=== PATIENT | female | born 1980 | race Caucasian/White ===

== ENCOUNTER → 2023-11-07 15:44 | Outpatient (REF) | payer OTHER, SELFPAY | LOC: RAD 15:44 | PROVIDERS: ATTENDING PHYSICIAN Nurse Practitioner Family | DX: R10.31 Right lower quadrant pain (principal) | CPT/HCPCS: 74177; Q9967 ==

== ENCOUNTER 2023-11-07 22:34 | Observation (INO) | payer OTHER, SELFPAY ==
[2023-11-07 19:58] VITALS: BP 106/67
--- NOTE | 2023-11-07 20:52 | ED.GENMED ---
History of Present Illness
General
Chief Complaint: Abdominal Pain
Source: patient
Exam Limitations: none
Time Seen by Provider: 11/07/23 20:40
Travel History
Have you had any contact with someone who has COVID-19?: No
Do you have any symptoms of coronavirus? Fever > 100 degrees, chills, cough, shortness of breath, sore throat, loss of taste or smell, muscle aches, or headache?: No
History of Present Illness
History of Present Illness:
See MDM
Past History
Past History
ED Past Medical History: Other (PVCs)
Social History
Tobacco: Non-smoker
Alcohol: None
Phy Exam
Physical Exam
Physical Exam:
See MDM
Course
Orders/Labs/Results
Orders:
Orders
11/07/23 20:51
Complete Blood Count/With Diff Urgent
Comprehensive Metabolic Panel Urgent
Piperacillin/Tazo 3.375 Gram [Zosyn] 3.375 gram in 50 ml IV NOW
Vital Signs
Initial and Last Documented VS:
Initial Vital Signs
Temp Pulse Resp BP Pulse Ox
98.5 F 84 17 106/67 99
11/07/23 19:58 11/07/23 19:58 11/07/23 19:58 11/07/23 19:58 11/07/23 19:58
Last Documented Vital Signs
Temp Pulse Resp BP Pulse Ox
98.5 F 84 17 106/67 99
11/07/23 19:58 11/07/23 19:58 11/07/23 19:58 11/07/23 19:58 11/07/23 19:58
MDM/Problems Addressed
Differential Diagnosis Includes:
HPI and MDM Narrative:
43-year-old female presenting with acute appendicitis. Patient developed pain in the right lower quadrant since 11 PM last night. Outpatient CT showed acute appendicitis. Her PCP called her to go to the emergency department. She denies fevers.
On exam, she is well-appearing nontoxic. She does have point tenderness to right lower quadrant. Surgery made aware. Will start antibiotics and admit for evaluation in the morning
Physical exam
General: Well appearing and non-toxic
HEENT: protecting airway
Neck: appears supple
CV: No evidence of cyanosis
Resp: No accessory muscle use
Abd: Non-distended. Point tenderness to right lower quadrant
Extremities: No deformities
Neuro: alert
Psych: Normal affect
Skin: Intact
Problems Addressed including Acute and Chronic Conditions affecting care:
1. Acute appendicitis
Acuity: acute
Prognosis: stable
Details: Will start antibiotics and admit
Updates
Differential Diagnosis (but not limited to): Acute appendicitis, mesenteric enteritis, diverticulitis
Testing considered: Urinalysis but she denies symptoms
Drug therapy (if applicable): OTC meds, please see d/c instruction regarding Rx drugs
Amount and/or Complexity of Data Reviewed
Clinical info obtained from: Patient
External data reviewed: Outpatient CT evaluated showing uncomplicated appendicitis
Labs I independently reviewed (but not limited to): [ ]
Radiology: N/A
Pulse Ox: not hypoxic
EKG independently reviewed: N/A
Senior Windows Engineer: N/A
Critical Care: N/A
Risk of Complication:
Social Determinants of health: Good social support
Discussed with other providers: Surgery
Escalation of Care includes Admit/Obs: Given appendicitis, will admit
Occasional wrong word or 'sound a like' substitutions may have occurred due to the inherent limitations of voice recognition software. Read the chart carefully and recognize, using context, where substitutions have occurred.
*Critical Care Note
Total Time (30-74mins, 75-104mins- exclusive of procedures): Not Applicable
ED Attending Note
-
Portions of this chart may have been created with voice recognition software.� Occasional wrong word or��sound alike� substitutions may have occurred due to the inherent limitations of voice recognition software.
Discharge Plan
Departure
Patient Disposition: Admit
Date of Disposition: 11/07/23
Time of Disposition: 21:00
Presentation/result/management discussed w/ accepting MD/DO: Hospitalist
Discharge Problem:
Acute appendicitis
Prescriptions:
No Action
Vitamins
1 tab PO DAILY
ibuprofen 600 MG tablet
600 mg PO Q4HPRN PRN (Reason: moderate pain/cramps) Qty: 0 0RF
Interventions
Interventions:
*Risk Screen - Suicide Last Done: 11/07/23 19:59
*General Assessment Last Done: 11/07/23 19:59
*Neglect/Abuse Screening Last Done: 11/07/23 19:59
*ED COVID-19 Vaccine History Last Done: 11/07/23 19:59
Discharge Date and Time
Print Language: JAMAICAN
[2023-11-07] MEDS: ZOSYN 50 IV (21:06)
[2023-11-07 21:09] LABS: % Basophils 0.2 % (0-2); % Immature Granulocytes 0.2 % (0-0.5); % Lymphocytes 20.1 % (20.5-51.1); % Monocytes 4.4 % (1.7-9.3); % Neutrophils 74.1 % (42.2-75.2); Absolute Eosinophils 0.1 10^3/uL (0-0.7); Absolute Lymphocytes 1.7 10^3/uL (1.2-3.4); Absolute Monocytes 0.4 10^3/uL (0.1-0.6); Absolute Neutrophils 6.2 10^3/uL (1.4-6.5); Hematocrit 32.6 % (37.0-47.0); Hemoglobin 11.7 g/dL (12.0-16.0); Mean Corp Hgb Conc. 35.9 g/dL (33.0-37.0); Mean Corpuscular Hgb 30.1 pg (27.0-31.0); Mean Corpuscular Volume 83.8 fL (81.0-99.0); Mean Platelet Volume 9.8 fL (7.4-10.4); Nucleated Red Blood Cells % 0 %; Platelet Count 201 10^3/uL (130-400); Red Blood Cell Count 3.89 10^6/uL (4.20-5.40); White Blood Cell Count 8.3 10^3/uL (4.8-10.8)
[2023-11-07 21:24] LABS: HCG, Serum Qualitative Screen Negative
[2023-11-07 21:27] LABS: ALT (SGPT) 22 U/L (0-35); AST (SGOT) 28 U/L (14-36); Alkaline Phosphatase 45 U/L (38-126); Blood Urea Nitrogen 19 mg/dl (7-17); Calcium 8.9 mg/dl (8.4-10.2); Carbon Dioxide 26 mmol/L (22-30); Chloride 104 mmol/L (98-107); Glucose 94 mg/dl (70-99); Potassium 3.7 mmol/L (3.5-5.1); Sodium 136 mmol/L (135-145); Total Bilirubin 0.8 mg/dl (0.2-1.3); Total Protein 6.4 g/dl (6.3-8.2); eGFR > 60.00
--- NOTE | 2023-11-07 22:27 | HPS.HSE ---
Addendum entered and electronically signed by Kris Mckeon MD 11/08/23 08:19:
Patient seen and examined independently of admitting nurse practitioner. Agree with documented history and physical consistent with my current examination and evaluation.
HPI: 43-year-old female acute onset of abdominal pain starting evening at 11 PM after going to the [employer]. She thought she was experiencing possible gastroenteritis or GI bug. Pain increased in severity and began localizing to the
right side of the abdomen yesterday. Saw her primary care physician and she was referred for CT scan which demonstrated appendicitis prompting referral to the emergency department and subsequent admission.
She continues with discomfort in the right lower quadrant. Is about the same as yesterday. Some mild anorexia but no nausea, no vomiting, her bowels have moved regularly a couple times since the onset of her symptoms without diarrhea or
constipation. She had a similar episode like this back in the fall which lasted for 5 to 7 days and then resolved without seeking medical attention. Otherwise no similar priors.
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
AFVSS
NAD, AAOx3
ABD: Soft nondistended mild tenderness palpation localized in the right lower quadrant. No rebound rigidity no guarding.
CT imaging personally reviewed. Mildly distended appendix which appears to have some increased enhancement and surrounding localized inflammatory changes. Moderate stool burden. TI unremarkable. No additional notable findings.
Assessment: 43-year-old female presenting with acute appendicitis.
Reviewed with patient history, examination and CT imaging consistent with acute appendicitis. Discussed both operative and nonoperative management options and associated risks/benefits of approaches. Patient is in agreement to proceed with
appendectomy.
Laparoscopic appendectomy reviewed in detail with the patient. Discussed operative technique utilizing diagrams or drawings, alternative management options, benefits and potential risks such as but not limited to bleeding, infectious or wound
healing complications, iatrogenic injury to surrounding viscera and staple line leakage. Discussed the typical postoperative recovery pending operative findings.
Any of the patient's concerns or questions were fully addressed and informed consent was obtained.
Plan: OR for laparoscopic appendectomy.
Empiric antibiotic coverage with Zosyn has already been initiated.
Nothing by mouth, IV fluid hydration and supportive care awaiting operative room availability.
SCDs for DVT prophylaxis
Original Note:
Family Physician
-
Family Physician: Irene White
Chief Complaint
-
Abdominal pain
History of Present Illness
a 43 years old female present in ER with a complain of abdominal pain. Symptoms started last night around 11 pm with generalized abdominal pain, did not take any meds for the pain. Patient was able to sleep for couple hours then she waked up from
severe pain and could not get herself in a comfortable position. Pain increased with movement and walking. Patient was not able to eat all day. Denied nausea, vomiting, fever, diarrhea, constipation or any urinary symptoms. Denied SOB or chest pain.
Patient has history of PVCS and currently on metoprolol 12.5 mg at hs.
Medical History
Past Medical History
Past Medical History: Reports Other (PVCs)
Past Surgical History: Reports Other (umbilical hernia/repair )
Social History
Tobacco: Non-smoker
Alcohol: None
Personal:
Living: With Family
Employment: Other
Family History
Family History: Not pertinent
Allergies / Home Medications
Allergies reflects when Allergies were last updated in [facility].
Home Medications with original date entered in [facility]
Allergy/Medication List:
Patient Allergies
Allergy/AdvReac Type Severity Reaction Status Date / Time
latex Allergy UTI - Verified 11/07/23 19:56
BLADDER
INFECTION
FROM LATEX
CONDOMS
Home Medications Table - record
�Medication �Instructions �Recorded �Confirmed
metoprolol succinate 25 mg 12.5 mg PO HS 11/07/23 11/07/23
tablet,extended release 24 hr
Review of Systems
-
A 12 point ROS was completed and negative except as noted: Yes
Constitutional: Reports No Symptoms
EENT: Reports No Symptoms
Respiratory: Reports No Symptoms
Cardiac: Reports No Symptoms
Abdomen/GI: Reports Abdominal Pain
: Reports No Symptoms
Musculoskeletal: Reports No Symptoms
Physical Exam
Vital Signs
Vital Signs
Temp Pulse Resp BP Pulse Ox
98.5 F 84 17 106/67 99
11/07/23 19:58 11/07/23 19:58 11/07/23 19:58 11/07/23 19:58 11/07/23 19:58
Physical Exam
General: No Apparent Distress
Respiratory: Clear
Cardiac: Regular Rhythm
GI: Soft, Non Distended, Normal Bowel Sounds and Tender (RLQ (+ McBurney`s point) )
Musculoskeletal: No Edema
Skin: Warm
Neuro: Awake and AO x 3
Psych: Calm
Laboratory Results
-
11/07/23 21:04
11/07/23 21:04
Laboratory Results
Total Bilirubin 0.8 mg/dl (0.2-1.3) 11/07/23 21:04
AST 28 U/L (14-36) 11/07/23 21:04
ALT 22 U/L (0-35) 11/07/23 21:04
Alkaline Phosphatase 45 U/L (38-126) 11/07/23 21:04
Data Reviewed
-
CT Scan: Discussed with Patient
Impression/Plan
-
Abdomen/Plvs CT shows
ACUTE APPENDICITIS without evidence for appendiceal perforation or periappendiceal abscess
IMPRESSION:
ACUTE APPENDICITIS
PLAN:
Admit/observation/ med- surg level/ Dr. Mckeon (Surgical services)
NPO
IVF
analgesics as needed.
Abx Zosyn.
History of PVCs
Continue with home meds metoprolol 12.5mg
DVT prophylaxis: Lovenox sq
Code status: Full Code
[2023-11-07 23:25] VITALS: BP 103/53; BMI 26.0
[2023-11-08] VITALS (11 sets, daily range): BP systolic 87–109; BP diastolic 42–66
[2023-11-08] MEDS: NSS 1000 IV (00:20)
[2023-11-08] MEDS: TORADOL 15 MG IV (00:28)
[2023-11-08] MEDS: LOPRESSOR 12.5 MG PO (00:28)
[2023-11-08] MEDS: ZOSYN 50 IV ×3 (02:18→13:46)
--- NOTE | 2023-11-08 08:21 | W.SUR.PREOP ---
Pre-Operative Surgical Note
-
I have examined this patient prior to the performance of the scheduled procedure.
The patient's condition is unchanged from the time of the current History and
Physical and the patient is able to undergo the scheduled procedure.
--- NOTE | 2023-11-08 12:24 | W.IMMPOSTOP ---
Addendum entered and electronically signed by Kris Mckeon MD 11/08/23 12:38:
#[id number]
Original Note:
Surgical Immed Post Op Note
-
Primary Surgeon: Linda
Assisting Surgeon: None
Pre-op Diagnosis: Acute Appendicitis
Post-op Diagnosis: Acute Appendicitis
Procedure Performed: Laparoscopic Appendectomy
Anesthesia Type: GETA + 0.25% Marcaine
Specimen / Cultures: Appendix
Estimated Blood Loss: 2mL
Complications: none immediate
Operative Findings: Acute uncomplicated appendicitis. no perforation, no abscess, no purulence.
Plan: routine post op care, okay for d/c when gene PO, ambulating and pain controlled,
--- NOTE | 2023-11-08 13:49 | PTCARENOTE ---
received patient from PACU in bed, alert and oriented x3, reporting minimal abdomen discomfort, declined medication, ice pack in place to abdomen. also reporting headache, requesting oral fluids, she feels this will help. Abdomen with 4 puncture
sites with surgical glue intact. vitals noted. call engle inreach. plan of care on going.
== END 2023-11-08 20:04 | disposition home or self-care (01) ==
LOC: 4 EAST ACU 22:34
PROVIDERS: ADMITTING PHYSICIAN Surgery; EMERGENCY PHYSICIAN Student in an Organized Health Care Education/Training Program; FAMILY PHYSICIAN Family Medicine
DX: K35.80 Unspecified acute appendicitis (principal); Z86.79 Personal history of other diseases of the circulatory system; Z91.040 Latex allergy status
CPT/HCPCS: 44970; 88304; 80053; 84703; 85025; 96365; 99285; G0378

== ENCOUNTER → 2024-02-17 12:59 | Outpatient (REF) | payer OTHER, SELFPAY | LOC: HWEVLT 12:59 | PROVIDERS: ATTENDING PHYSICIAN Radiology Diagnostic Radiology | DX: I83.893 Varicose veins of bilateral lower extremities with other complications (principal) | CPT/HCPCS: 93970 ==

== ENCOUNTER → 2024-03-22 09:20 | Outpatient (REF) | payer OTHER, SELFPAY | LOC: WDC 09:20 | PROVIDERS: ATTENDING PHYSICIAN Physician Assistant Medical | DX: N63.20 Unspecified lump in the left breast, unspecified quadrant (principal); N63.23 Unspecified lump in the left breast, lower outer quadrant | CPT/HCPCS: 76642; 77062; 77066 ==

== ENCOUNTER → 2024-03-25 08:00 | Outpatient (REF) | payer OTHER, SELFPAY | LOC: HWEVLT 08:00 | PROVIDERS: ATTENDING PHYSICIAN Radiology Vascular & Interventional Radiology | DX: I83.891 Varicose veins of right lower extremity with other complications (principal) | CPT/HCPCS: 36471; 36478; C1769 ==

== ENCOUNTER → 2024-04-08 15:01 | Outpatient (REF) | payer OTHER, SELFPAY | LOC: HWEVLT 15:01 | PROVIDERS: ATTENDING PHYSICIAN Radiology Diagnostic Radiology | DX: I83.891 Varicose veins of right lower extremity with other complications (principal) | CPT/HCPCS: 93971 ==

== ENCOUNTER 2024-05-04 06:10 | Day surgery (SDC) | payer OTHER, SELFPAY ==
[2024-04-28 08:49] VITALS: BMI 23.6
[2024-04-28 08:50] LABS: Hematocrit 37.2 % (37.0-47.0); Hemoglobin 13.1 g/dL (12.0-16.0); Mean Corp Hgb Conc. 35.2 g/dL (33.0-37.0); Mean Corpuscular Hgb 30.5 pg (27.0-31.0); Mean Corpuscular Volume 86.7 fL (81.0-99.0); Mean Platelet Volume 11.5 fL (7.4-10.4); Platelet Count 212 10^3/uL (130-400); Red Blood Cell Count 4.29 10^6/uL (4.20-5.40); Red Cell Dist. Width 11.9 % (11.5-14.5); White Blood Cell Count 3.8 10^3/uL (4.8-10.8)
[2024-04-28 10:33] LABS: ALT (SGPT) 21 U/L (0-35); AST (SGOT) 27 U/L (14-36); Albumin 4.2 g/dl (3.5-5.0); Alkaline Phosphatase 31 U/L (38-126); Blood Urea Nitrogen 19 mg/dl (7-17); Calcium 9.2 mg/dl (8.4-10.2); Carbon Dioxide 24 mmol/L (22-30); Chloride 104 mmol/L (98-107); Estimated Creatinine Clearance 70 ml/min; Glucose 77 mg/dl (70-99); Potassium 4.3 mmol/L (3.5-5.1); Sodium 141 mmol/L (135-145); Total Bilirubin 0.6 mg/dl (0.2-1.3); Total Protein 6.6 g/dl (6.3-8.2); eGFR > 60.00
[2024-05-04 06:51] VITALS: BP 107/55; BMI 23.6
[2024-05-04] MEDS: TYLENOL 1000 MG PO (06:58)
[2024-05-04 08:37] VITALS: BP 97/54
[2024-05-04 08:45] VITALS: BP 98/59
[2024-05-04 09:00] VITALS: BP 99/65
[2024-05-04 09:15] VITALS: BP 98/62
[2024-05-04 09:30] VITALS: BP 98/61
== END 2024-05-04 09:58 | disposition home or self-care (01) ==
LOC: SDS 06:10
PROVIDERS: ATTENDING PHYSICIAN Surgery; FAMILY PHYSICIAN Family Medicine
DX: N60.02 Solitary cyst of left breast (principal)
CPT/HCPCS: 19120; 88304; 36415; 80053; 82306; 84134; 85027; L8000

== ENCOUNTER → 2024-05-06 08:05 | Outpatient (REF) | payer OTHER, SELFPAY | LOC: HWEVLT 08:05 | PROVIDERS: ATTENDING PHYSICIAN Radiology Vascular & Interventional Radiology | DX: I83.892 Varicose veins of left lower extremity with other complications (principal) | CPT/HCPCS: 36478; C1769 ==

== ENCOUNTER → 2024-05-25 14:55 | Outpatient (REF) | payer OTHER, SELFPAY | LOC: HWEVLT 14:55 | PROVIDERS: ATTENDING PHYSICIAN Radiology Diagnostic Radiology | DX: I83.892 Varicose veins of left lower extremity with other complications (principal) | CPT/HCPCS: 93971 ==

== ENCOUNTER → 2024-07-27 15:03 | Outpatient (REF) | payer OTHER, SELFPAY | LOC: RCS 15:03 | PROVIDERS: ATTENDING PHYSICIAN Internal Medicine Cardiovascular Disease; FAMILY PHYSICIAN Family Medicine | DX: R00.2 Palpitations (principal); I34.1 Nonrheumatic mitral (valve) prolapse; I49.3 Ventricular premature depolarization | CPT/HCPCS: 93306 ==

== ENCOUNTER 2025-02-13 05:56 | Emergency (ER) | payer OTHER, SELFPAY ==
[2025-02-13 06:10] VITALS: BP 110/76
[2025-02-13 06:26] VITALS: BMI 25.7
--- NOTE | 2025-02-13 07:32 | ED.GENMED ---
History of Present Illness
General
Chief Complaint: Musculo-Skeletal Complaint
Source: patient
Time Seen by Provider: 02/13/25 07:00
History of Present Illness
History of Present Illness:
44-year-old female presenting to the emergency department for evaluation of left foot pain which started 1 week ago when she accidentally fell from counter height believing that she landed on her great toe or hit it against the wall causing some
mild pain, pain seem to somewhat subside throughout the week, yesterday went running and shortly after completion of the run started to notice increased pain and swelling over the distal first metatarsal and along the medial portion of the
calcaneus. Patient awoke this morning also noticing some pain in her left middle finger and thumb, concern for possible joint related complications so decided to come to the ER further evaluation. Denies any fevers, chills, rigors. She denies any
direct injury to the left hand. No weakness or numbness. No other concerns.
Past History
Past History
ED Past Medical History: Other (PVCs)
ED Past Surgical History: Appendectomy and Other
Social History
Tobacco: Non-smoker
Alcohol: None
Drug: None
Personal:
Living: with family
Review of Systems
Review of Systems
All Other Systems: ROS reviewed and negative except as documented in HPI and ROS
Phy Exam
Physical Exam
Physical Exam:
GENERAL: Alert , in no apparent distress
EYE: conjunctiva clear
Head: Normocephalic atraumatic
NECK: Supple,
ENT: mmm.
LUNGS: no acute respiratory distress
NEUROLOGICAL: Alert and oriented
SKIN: Warm and dry, skin intact.
MUSCULOSKELETAL: Left foot and ankle: There is mild soft tissue swelling with slight erythema over the dorsum of the distal first metatarsal as well as a small patch of erythema and tenderness along the medial portion of the proximal calcaneus.
There is no tenderness at the first MTP joint. Easily palpable pedal and tibial pulse. Cap refill less than 2 seconds. No calf tenderness or edema. Calcaneal tendon is intact and without tenderness.
Left hand: There is mild soft tissue swelling of the PIP joint of the left middle finger. Full range of motion of the remainder of the extremities/digits. Neurovascularly intact.
PSYCH: Normal and appropriate interaction.
Scores
Heart Failure Risk
Heart Failure Risk Score: Not Applicable
Heart Score for Chest Pain Patients
STEMI patient?: Not applicable
Withdrawal Assessment of Alcohol
Withdrawal Assessment Completed?: Not applicable
Course
Orders/Labs/Results
Orders:
Orders
02/13/25 07:16
CR Foot - Left Min 3 Views Urgent
Comment:
Reason For Exam: fall, pain distal first metatarsal and calcaneus
Vital Signs
Initial and Last Documented VS:
Initial Vital Signs
Temp Pulse Resp BP Pulse Ox
98.5 F 67 18 110/76 100
02/13/25 06:10 02/13/25 06:10 02/13/25 06:10 02/13/25 06:10 02/13/25 06:10
Last Documented Vital Signs
Temp Pulse Resp BP Pulse Ox
98.5 F 67 18 110/76 100
02/13/25 06:10 02/13/25 06:10 02/13/25 06:10 02/13/25 06:10 02/13/25 07:33
MDM/Problems Addressed
Differential Diagnosis Includes:
Fracture
Contusion
Tendon injury
Gout
Cellulitis
RA
OA
MDM/Problems Addressed:
44-year-old female presenting to the ER for evaluation of left first metatarsal pain following an injury 1 week ago during a fall, pain was only very mild but exacerbated significantly after she went for a run yesterday. There is soft tissue
swelling with slight erythema over the dorsal aspect with tenderness. Will obtain x-ray to rule out fracture. Unclear etiology for patient's hand pain. There does appear to be some mild soft tissue swelling over the PIP joint of the middle finger
of the left hand however patient has full range of motion. I did offer x-ray of this as well but patient declines. Anticipate need for further outpatient follow-up. Continue NSAIDs/Tylenol as needed.
*Radiology
Radiology exam reviewed: preliminary read by ED provider (degenerative changes)
*Pulse Oximetry
SaO2: 100
Oxygen Mode of Delivery: Room air
Patient hypoxic: no
*Critical Care Note
Total Time (30-74mins, 75-104mins- exclusive of procedures): Not Applicable
ED Attending Note
-
Portions of this chart may have been created with voice recognition software.� Occasional wrong word or��sound alike� substitutions may have occurred due to the inherent limitations of voice recognition software.
Discharge Plan
Departure
Patient Disposition: Home (Routine Discharge)
Date of Disposition: 02/13/25
Time of Disposition: 08:04
Patient with high blood pressure during this ER visit?: No
Discharge Problem:
Acute pain of left foot
Instructions: Foot sprain - ED (DC)
Prescriptions:
No Action
metoprolol succinate 25 mg tablet extended release 24 hr
12.5 mg PO HS
Referrals:
Irene White MD [Family Provider, Family Practice]
Deng Villa MD [Active, Orthopedics]
Interventions
Interventions:
*Risk Screen - Suicide Last Done: 02/13/25 06:10
*General Assessment Last Done: 02/13/25 06:10
*Neglect/Abuse Screening Last Done: 02/13/25 06:10
*ED- Fall Risk Assessment Last Done: 02/13/25 06:26
*ED COVID-19 Vaccine History Last Done: 02/13/25 06:26
*Nursing Disposition Last Done: 02/13/25 08:40
ED-Musculoskeletal Assessment Last Done: 02/13/25 06:26
Discharge Date and Time
Discharge Date/Time: 02/13/25 08:43
Print Language: PORTUGUESE
== END 2025-02-13 08:43 | disposition home or self-care (01) ==
LOC: EMR 05:56
PROVIDERS: EMERGENCY PHYSICIAN Emergency Medicine; FAMILY PHYSICIAN Family Medicine
DX: M79.672 Pain in left foot (principal); W17.89XA Other fall from one level to another, initial encounter
CPT/HCPCS: 99283; 73630

== ENCOUNTER → 2025-04-02 08:13 | Outpatient (REF) | payer OTHER, SELFPAY | LOC: RAD 08:13 | PROVIDERS: ATTENDING PHYSICIAN Family Medicine | DX: M79.672 Pain in left foot (principal); M79.642 Pain in left hand | CPT/HCPCS: 73130; 73630 ==

== ENCOUNTER → 2025-06-08 09:32 | Outpatient (REF) | payer OTHER, SELFPAY | LOC: WDC 09:32 | PROVIDERS: ATTENDING PHYSICIAN Student in an Organized Health Care Education/Training Program; FAMILY PHYSICIAN Family Medicine | DX: R92.8 Other abnormal and inconclusive findings on diagnostic imaging of breast (principal) | CPT/HCPCS: 76642; 77061; 77065 ==